=== PATIENT | female | born 1950 | race Caucasian/White ===

== ENCOUNTER 2016-08-03 00:40 | Emergency (ER) | payer OTHER ==
[~2016-08-03] VITALS: Ht 162.6 cm; Wt 59.0 kg
[~2016-08-03 00:40] MED LIST: ACHD5005 PO; CYCL10TA9 PO; NAPR220C11 PO
[2016-08-03] MEDS ORDERED: [UNRECOGNIZED DRUG - OTHER] (00:54)
--- NOTE | 2016-08-03 01:56 | ED Fall/Injury ---
General Chief Complaint: General Problems/Pain Stated Complaint: RT ARM PAIN-FALL Nursing Triage Note: reports falling on 07/24/2016 over her dog. Reports her R arm continues to hurt and she still has bruising. reports has been taking aleve for the pain. Reports no pain at this time and pain is worse when using arm Source: patient Exam Limitations: no limitations History of Present Illness Time seen by provider: 01:06 Initial Comments This 65-year-old woman presents to emergency room with right forearm pain since July 25 when she fell. She tripped over her dog. She bruised her left knee and left elbow which have improved. However, the pain in the right forearm near her elbow persists. She particularly has difficulty with gripping and rotating her hand. She has been taking Aleve which has been insufficient. 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 Allergies and Home Medications Allergies Coded Allergies: No Known Drug Allergies (Unverified , 09/10/12) Home Medications (Reported) Hydrocodone/Acetaminophen 1 Each Tablet #20 0.5-1 EACH PO Q4H PRN PRN PAIN Prescribed by: JUSTIN SCHAEFFER on 08/03/16 0206 Naproxen Sodium 220 Mg Capsule 220 MG PO (Reported) Constitutional: no symptoms reported Eyes: No Symptoms Reported Ears, Nose, Mouth, Throat: no symptoms reported Respiratory: no symptoms reported Cardiovascular: no symptoms reported Gastrointestinal: no symptoms reported Genitourinary: no symptoms reported : No Musculoskeletal: see HPI Skin: see HPI Psychiatric/Neurological: No Symptoms Reported Past Biwdpqn-Pmfkrq-Haakxx Hx Patient Social History Alcohol Use: Denies Use Recreational Drug Use: No Smoking Status: Never a Smoker Recent Foreign Travel: No Contact w/Someone Who Travel: No Recent Infectious Disease Expo: No Recent Hopitalizations: No Physical Abuse Screen: No Sexual Abuse: No Surgeries HX Surgeries: Yes Surgeries: Eye Surgery, Hysterectomy Respiratory Hx Respiratory Disorders: No Cardiovascular Hx Cardiac Disorders: No Neurological Hx Neurological Disorders: No Reproductive System : No Hx Reproductive Disorders: No 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, 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 Genitourinary Hx Genitourinary Disorders: No Gastrointestinal Hx Gastrointestinal Disorders: No Endocrine Hx Endocrine Disorders: No HEENT HX ENT Disorders: Yes (cyst removal on eye) HEENT Disorders: Macular Degeneration Cancer Hx Cancer: No Psychosocial Hx Psychiatric Problems: No Integumentary HX Skin/Integumentary Disorder: No Blood Transfusions Hx Blood Disorders: No Physical Exam Vital Signs Vital Sign - Last 12Hours 08/03/16 08/03/16 00:50 02:15 Temp 98.2 Pulse 82 Resp 18 B/P 153/95 Pulse Ox 98 O2 Delivery Room Air Capillary Refill : Less Than 3 Seconds General Appearance: WD/WN no apparent distress HEENT: PERRL/EOMI normal ENT inspection Neck: normal inspection Cardiovascular: regular rate, rhythm no edema no murmur Respiratory: lungs clear normal breath sounds no respiratory distress no accessory muscle use Gastrointestinal: soft Extremities: other (ecchymosis over the dorsal left elbow. Tenderness with extension of the right wrist and rotation of the wrist. 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 as tested no motor/sensory deficits alert normal mood/affect oriented x 3 Skin: normal color warm/dry ecchymosis Yayo Coma Score Best Eye Response: (4) Open Spontaneously Best Verbal Response: (5) Oriented Best Motor Response: (6) Obeys Commands Yayo Total: 15 Progress/Results/Core Measures Results/Orders My Orders Orders-JUSTIN COHEN MD Elbow, Right, 3 Views (08/03/16 01:19) Vital Signs/I&O Vital Sign - Last 12Hours 08/03/16 08/03/16 00:50 02:15 Temp 98.2 98.0 Pulse 82 74 Resp 18 16 B/P 153/95 Pulse Ox 98 100 O2 Delivery Room Air Blood Pressure Mean: 114 Diagnostic Imaging Diagonstic Imaging: Xray Plain Films/CT/US/NM/MRI: elbow Comments Elbow x-ray viewed by me. Report not yet available. There is fracture of the proximal radius involving the head. There is minimal angulation with no displacement. Departure Impression Impression: Primary Impression: Closed fracture of right proximal radius Qualified Code: S52.101A - Unspecified fracture of upper end of right radius, initial encounter for closed fracture Disposition: 01 HOME, SELF-CARE Condition: Improved Departure-Patient Inst. Decision time for Depature: 01:50 Referrals: NO,LOCAL PHYSICIAN (PCP) Primary Care Physician AQUILES MADDOX MD, MICHAEL P MD Patient Instructions: Radius Fracture Add. Discharge Instructions: Keep your right arm in a sling is much as possible. Keep the arm in the splint at all times. Keep the splint clean and dry. You may cover with a trash bag sealed at the top with a rubber band for bathing. Follow-up with an orthopedic doctor as soon as possible. Avoid use of NSAID medications such as ibuprofen, Aleve or naproxen you may elevate the elbow on pillows while sleeping. Icing in 20 minute intervals may help with pain and swelling. Use hydrocodone as prescribed. You may use Colace stool softener [id number] to prevent constipation while using narcotic pain medicines. All discharge instructions reviewed with patient and/or family. Voiced understanding. Scripts Hydrocodone/Acetaminophen (Hydrocodon -Acetaminophen 5-325)1 Each Tablet0.5-1 Each PO Q4H PRN PAIN #20 TAB Prov:JUSTIN COHEN MD 08/03/16 JUSTIN COHEN MD Aug 03, 2016 01:56
[2016-08-03] MEDS ORDERED: HYDR-3812 PO (02:06)
[2016-08-03 02:15] VITALS: BP 149/71
--- NOTE | 2016-08-03 06:40 | Diagnostic Imaging Report ---
INDICATION: Fall 11 days ago. FINDINGS: 3 views show nondisplaced fracture of the radial head. Articulating surfaces are smooth. Olecranon process in good alignment with the trochlea. There is moderate joint effusion. IMPRESSION: Nondisplaced radial head fracture. Dictated by: Dictated on workstation # [id number]
== END 2016-08-03 02:12 | disposition home or self-care (01) ==
LOC: EDUNIT# 00:40 → ER 00:45
DX: S52.124A Nondisplaced fracture of head of right radius, initial encounter for closed fracture (principal); W01.0XXA Fall on same level from slipping, tripping and stumbling without subsequent striking against object, initial encounter; Y92.009 Unspecified place in unspecified non-institutional (private) residence as the place of occurrence of the external cause; Y99.8 Other external cause status
CPT/HCPCS: 29125; 73080

== ENCOUNTER 2016-08-08 10:54 | Emergency (ER) | payer OTHER ==
[~2016-08-08] VITALS: Ht 162.6 cm; Wt 61.2 kg
[~2016-08-08 10:54] MED LIST changes: +HYDR-3812 PO; +[UNRECOGNIZED DRUG - OTHER]
--- OUTSIDE RECORDS SUMMARY | 2016-08-08 10:58 | XMS REPORT | Continuity of Care Document ---
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 Role Phone NO, LOCAL PHYSICIAN PCP Unavailable Insurance Providers Payer Name Policy Number Subscriber Name Relationship Unknown Brynn Adame 18 Self / Same As Patient Advance Directives Directive Response Recorded Date/Time Advance Directives No 08/03/16 12:50am Resuscitation Status Full Code 08/03/16 12:50am Chief Complaint and Reason for Visit Chief Complaint General Problems/Pain Reason for Visit Closed fracture of right proximal radius Problems Active Problems Medical Problem Onset Date Status Closed fracture of right proximal radius Unknown Acute Medications Current Home Medications Medication Dose Units Route Directions Days/Qty Instructions Start Date Naproxen Sodium 220 Mg 220 Mg Oral 09/10/12 [Aerads 2] 08/03/16 Hydrocodone/Acetaminophen 1 Each 0.5-1 Each Oral Every 4HRS as needed for Pain 20 08/03/16 Past Home Medications Medication Directions Ordered Status Cyclobenzaprine Hcl (Flexeril) 10 Mg Tablet, 1 Each Oral Q8hr Prn 09/10/12 Discontinued Acetaminophen/Hydrocodone Bitart 1 Each Tablet, 1 Each Oral Every 4HRS Discontinued Social History Social History Problem Response Recorded Date/Time Alcohol Use Denies Use 09/10/2012 5:44pm Recreational Drug Use No 09/10/2012 5:44pm Recent Foreign Travel No 08/03/2016 12:50am Recent Infectious Disease Exposure No 08/03/2016 12:50am Hospitalization with Isolation Denies 08/03/2016 12:50am Smoking Status Never a Smoker 08/03/2016 12:50am Recent Hopitalizations No 08/03/2016 12:50am Hospitalization with Isolation Denies 08/03/2016 12:50am Query Response Start Date Stop Date Smoking Status Never a Smoker Hospital Discharge Instructions No hospital discharge instructions. Plan of Care Discharge Date 08/03/16 2:12am Disposition 01 HOME, SELF-CARE Condition at Discharge Improved Instructions/Education Provided Radius Fracture Prescriptions See Medication Section Referrals NO,LOCAL PHYSICIAN - Primary Care Physician AQUILES MADDOX MD - ELLE GOODRICH MD - Additional Instructions/Education Keep your right arm in a sling is much as possible. Keep the arm in the splint at all times. Keep the splint clean and dry. You may cover with a trash bag sealed at the top with a rubber band for bathing. Follow-up with an orthopedic doctor as soon as possible. Avoid use of NSAID medications such as ibuprofen, Aleve or naproxen you may elevate the elbow on pillows while sleeping. Icing in 20 minute intervals may help with pain and swelling. Use hydrocodone as prescribed. You may use Colace stool softener [id number] to prevent constipation while using narcotic pain medicines. All discharge instructions reviewed with patient and/or family. Voiced understanding. Functional Status No functional status results. Allergies, Adverse Reactions, Alerts No known allergies. Immunizations No immunization records. Vital Signs Acute Vital Signs Vital Response Date/Time Temperature (Fahrenheit) 98.2 degrees F (97.6 - 99.5) 08/03/2016 12:50am Temperature (Calculated Celsius) 36.54022 degrees C (36.4 - 37.5) 08/03/2016 12:50am Pulse Rate (adult) 82 bpm (60 - 90) 08/03/2016 12:50am Respiratory Rate 18 bpm (12 - 24) 08/03/2016 12:50am O2 Sat by Pulse Oximetry 98 % (88 - 100) 08/03/2016 12:50am Blood Pressure 153/95 mm Hg 08/03/2016 12:50am Blood Pressure Mean 114 mm Hg 08/03/2016 12:50am Pain Numeric Pain Scale 4 08/03/2016 1:02am Height (Feet) 5 feet 08/03/2016 12:50am Height (Inches) 4 inches 08/03/2016 12:50am Height (Calculated Centimeters) 162.036870 cm 08/03/2016 12:50am Weight (Pounds) 130 pounds 08/03/2016 12:50am Weight (Calculated Kilograms) 58.077109 kilograms 08/03/2016 12:50am Capillary Refill Capillary Refill Less Than 3 Seconds 08/03/2016 12:50am Height 5 ft 4 in Weight 130 lb Body Mass Index 22.3 kg/m^2 Results No known relevant diagnostic tests, laboratory data and/or discharge summary. Procedures No known history of procedures. Encounters Encounter Location Arrival/Admit Date Discharge/Depart Date Attending Provider Departed Emergency Room [facility] 08/03/16 12:45am 05/10 2:12am JUSTIN COHEN MD Recent Diagnosis
--- NOTE | 2016-08-08 11:32 | ED Lower Extremity ---
General Chief Complaint: Lower Extremity Stated Complaint: L KNEE SWELLING/PAIN Nursing Triage Note: PT CO OF L KNEE PAIN FROM FALL 07/24/16, PT HAS SWELLING AND BRUISING NOTED FROM FALL. PT ALSO HAS FX ELBOW FROM FALL Nursing Sepsis Screen: No Definite Risk Source: patient, family Exam Limitations: no limitations History of Present Illness Time seen by provider: 11:31 Initial Comments To ER with left knee pain and bruising. She fell on 07/24/16 and was evaluated in the emergency room several days later and found to have a distal right radius fracture. She had minimal knee pain at that time and it was not mentioned to the provider so was not x-rayed. However, pain and bruising persists and she like this evaluated today. She has been able to bear weight since the accident without any increased pain. She is able to lift her foot up off the bed without any increase in pain. Onset: just prior to arrival Severity: moderate Method of Injury: fell Modifying Factors: Improves With Movement Allergies and Home Medications Allergies Coded Allergies: No Known Drug Allergies (Unverified , 09/10/12) Home Medications (Reported) Hydrocodone/Acetaminophen 1 Each Tablet #20 0.5-1 EACH PO Q4H PRN PRN PAIN Prescribed by: JUSTIN SCHAEFFER on 08/03/16 0206 Naproxen Sodium 220 Mg Capsule 220 MG PO (Reported) Constitutional: see HPI EENTM: see HPI Respiratory: no symptoms reported Cardiovascular: no symptoms reported Genitourinary: no symptoms reported Musculoskeletal: see HPI other (right arm is in a splint and sling. There is significant bruising to the lateral aspect of the anterior left lower leg. Pain with palpation to the patella on the left.) Skin: no symptoms reported Psychiatric/Neurological: No Symptoms Reported Past Zssbpyr-Txsigh-Yozdci Hx Patient Social History Alcohol Use: Denies Use Recreational Drug Use: No Smoking Status: Never a Smoker Recent Foreign Travel: No Contact w/Someone Who Travel: No Recent Infectious Disease Expo: No Recent Hopitalizations: Yes (ED RECENT FX R ELBOW) Physical Abuse Screen: No Sexual Abuse: No Immunizations Up To Date Date of Influenza Vaccine: Apr 24, 2016 Seasonal Allergies Seasonal Allergies: No Surgeries HX Surgeries: Yes Surgeries: Eye Surgery, Hysterectomy Respiratory Hx Respiratory Disorders: No Cardiovascular Hx Cardiac Disorders: No Neurological Hx Neurological Disorders: No Reproductive System Hx Reproductive Disorders: No 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, 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 Genitourinary Hx Genitourinary Disorders: No Gastrointestinal Hx Gastrointestinal Disorders: No Endocrine Hx Endocrine Disorders: No HEENT HX ENT Disorders: Yes (cyst removal on eye) HEENT Disorders: Macular Degeneration Cancer Hx Cancer: No Psychosocial Hx Psychiatric Problems: No Integumentary HX Skin/Integumentary Disorder: No Blood Transfusions Hx Blood Disorders: No Physical Exam Vital Signs Vital Sign - Last 12Hours 08/08/16 11:15 Temp 98.1 Pulse 88 Resp 18 B/P 140/70 Pulse Ox 98 Capillary Refill : Less Than 3 Seconds General Appearance: WD/WN no apparent distress HEENT: PERRL/EOMI normal ENT inspection Respiratory: no respiratory distress no accessory muscle use Hips: bilateral hip non-tender, bilateral hip normal inspection, bilateral hip normal range of motion Legs: bilateral leg non-tender, bilateral leg normal inspection, bilateral leg normal range of motion Knees: left knee ecchymosis, left knee soft tissue tenderness, left knee swelling, left knee other (ecchymosis and tenderness to palpation over the superior lateral aspect of the patella. There is ecchymosis that extends inferiorly down the lateral aspect of the left leg without significant induration or swelling) Ankles: bilateral ankle non-tender, bilateral ankle normal inspection, bilateral ankle normal range of motion Feet: bilateral foot non-tender, bilateral foot normal inspection, bilateral foot normal range of motion Neurologic/Tendon: normal sensation normal motor functions Neurologic/Psychiatric: alert normal mood/affect oriented x 3 Skin: normal color warm/dry Progress/Results/Core Measures Results/Orders My Orders Orders-CHRIS NAVARRETE APRN Knee, Left, 3 Views (08/08/16 11:28) Vital Signs/I&O Vital Sign - Last 12Hours 08/08/16 11:15 Temp 98.1 Pulse 88 Resp 18 B/P 140/70 Pulse Ox 98 Blood Pressure Mean: 93 Diagnostic Imaging Diagonstic Imaging: Xray Comments NAME: BRYNN LEONE Alexia MED REC#: [id number] PT STATUS: REG ER : 1950 PHYSICIAN: CHRIS NAVARRETE APRN ADMIT DATE: 08/08/16/ER Draft Date of Exam:08/08/16 KNEE, LEFT, 3 VIEWS EXAMINATION: 3 views of the left knee. INDICATION: Status post fall. FINDINGS: Alignment of the knee appears normal. There is no demonstration of cortical disruption to suggest an acute fracture. Osteoarthritic changes are present with medial joint space narrowing. There is no evidence of a large joint effusion. There does appear to be some prepatellar soft tissue swelling. IMPRESSION: 1. Prepatellar soft tissue swelling without evidence of acute fracture or significant joint effusion. There is osteoarthritic joint space narrowing of the medial compartment. Dictated on workstation # [id number] Dict: 08/08/16 1143 Trans: 08/08/16 1152 [facility] [id number] Interpreted by: ALONDRA ESCOBEDO MD Electronically signed by: Departure Impression Impression: Primary Impression: Internal derangement of left knee Disposition: HOME, SELF-CARE Condition: Stable Departure-Patient Inst. Decision time for Depature: 11:47 Referrals: NO,LOCAL PHYSICIAN (PCP/Family) Primary Care Physician Patient Instructions: Internal Derangement of the Knee (DC) Add. Discharge Instructions: 1. Ice pack to the knee 2. Continue pain medication 3. Follow-up with your regular physician to discuss an MRI of the knee to look at the soft tissues of the ligaments. Given the degree of bruising even 15 days since the injury further evaluation is warranted. All discharge instructions reviewed with patient and/or family. Voiced understanding. CHRIS NAVARRETE APRN Aug 08, 2016 11:32
--- NOTE | 2016-08-08 11:52 | Diagnostic Imaging Report ---
EXAMINATION: 3 views of the left knee. INDICATION: Status post fall. FINDINGS: Alignment of the knee appears normal. There is no demonstration of cortical disruption to suggest an acute fracture. Osteoarthritic changes are present with medial joint space narrowing. There is no evidence of a large joint effusion. There does appear to be some prepatellar soft tissue swelling. IMPRESSION: 1. Prepatellar soft tissue swelling without evidence of acute fracture or significant joint effusion. There is osteoarthritic joint space narrowing of the medial compartment. Dictated by: Dictated on workstation # [id number]
[2016-08-08 14:01] VITALS: BP 140/70
== END 2016-08-08 12:01 | disposition home or self-care (01) ==
LOC: EDUNIT# 10:54 → ER 10:55
DX: M23.92 Unspecified internal derangement of left knee (principal); M17.12 Unilateral primary osteoarthritis, left knee; S80.02XA Contusion of left knee, initial encounter; W19.XXXA Unspecified fall, initial encounter; Y99.8 Other external cause status
CPT/HCPCS: 73562